=== PATIENT | male | born 1990 | race Caucasian/White ===

== ENCOUNTER 2021-08-28 19:52 | Emergency (ER) | payer OTHER, SELFPAY ==
[2021-08-28 20:16] VITALS: BP 127/86; PULSE 74; RESP 18; TEMP 36; O2SAT 100; BMI 30.4
--- NOTE | 2021-08-28 21:14 | ED_ITS ---
HPI - Back Pain/Injury General Chief Complaint: Back Pain/Injury Stated Complaint: Chronic Lower Back Pain, Lump Time Seen by Provider: 08/28/21 20:25 Source: patient Mode of arrival: Ambulatory History of Present Illness HPI Narrative: Patient is an otherwise healthy 31-year-old male. He does have history of chronic pain. His back pain in the past. Approximately 1 week ago started having lower back pain. Has taken Tylenol at home. He has had pain like this in the past but it has never lasted this long. He reports no radicular symptoms. No urinary symptoms. No change in bowel habits. No fevers. His thought that he had a lump in his lower back. He does have a history of scoliosis. Related Data Previous Rx's Medication Instructions Recorded cyclobenzaprine 10 mg tablet 10 mg PO TID PRN #12 tab 08/28/21 Allergies Allergy/AdvReac Type Severity Reaction Status Date / Time No Known Drug Allergies Allergy Verified 08/28/21 20:16 Review of Systems Gastrointestinal Gastrointestinal: Reports system reviewed and no additional complaints, except as documented Genitourinary Genitourinary: Reports system reviewed and no additional complaints, except as documented Musculoskeletal Musculoskeletal: Reports system reviewed and no additional complaints, except as documented Integumentary/Breasts Skin/Breast: Reports system reviewed and no additional complaints, except as documented Hematologic/Lymphatic On Anticoagulants: No Patient History Medical History Scoliosis Social History Smoking Status: Never smoker Smoking Status: Never smoker alcohol intake frequency: holidays/special occasions only Substance Use Type: marijuana Exam Initial Vital Signs Initial Vital Signs: Vital Signs Temperature 96.8 F L 08/28/21 20:16 Pulse Rate 74 08/28/21 20:16 Respiratory Rate 18 08/28/21 20:16 Blood Pressure 127/86 08/28/21 20:16 Pulse Oximetry 100 08/28/21 20:16 Resp Effort & Inspection: normal respiratory effort Cardio Rate: regular rate Back/Spine/Pelvis Other: Of the year in question with the patient has lump do not feel any specific nodules or masses. He does have fullness of the right paraspinal muscles in the thoracic region. These are not tender to palpation. He does have paraspinal tenderness in his thoracolumbar region. Skin General: no rashes or lesions noted Neuro General: patient alert, patient awake and moves all extremities Course Vital Signs Vital signs: Vital Signs - 8 hr 08/28/21 20:16 Temperature 96.8 F L Pulse Rate 74 Respiratory Rate 18 Blood Pressure 127/86 Pulse Oximetry 100 MDM - Back Pain/Injury MDM Narrative Medical decision making narrative: Patient does have a benign exam. There is no masses felt on his back. His skin is unremarkable. He has no radicular symptoms. His symptoms are clearly muscular in origin. No indication for radiologic studies. Will send home with muscle relaxers to see his improves his symptoms. He is given return precauti ons. He expressed understanding and agreement. Discharge Plan Departure Patient Disposition: Home Clinical Impression: Back pain Instructions: DI for Low Back Pain Activity Restrictions/Additional Instructions: I do recommend that you continue to take all of your medications as directed. It is important that you stay active. You can use light stretching and heat and ice. Keep all of your scheduled medical appointments. Return to the emergency department for any new or worsening symptoms. Prescriptions: New cyclobenzaprine 10 mg tablet 10 mg PO TID PRN (Reason: muscle spasm) Qty: 12 0RF Referrals: Jax Trinidad MD [Primary Care Provider] -
== END 2021-08-28 21:22 | disposition home or self-care (01) ==
PROVIDERS: Emergency Provider Emergency Medicine; PCP Internal Medicine
DX: M54.50 Low back pain, unspecified (principal)
CPT/HCPCS: 99281

== ENCOUNTER 2024-02-29 17:29 | Observation (INO) | payer OTHER, SELFPAY ==
[2024-02-29] VITALS (8 sets, daily range): BP systolic 113–147; BP diastolic 60–89; PULSE 122–140; RESP 18–22; TEMP 37.4–38.2; O2SAT 96–99; BMI 30.4; BMI 29.8
--- NOTE | 2024-02-29 17:40 | DI.RAD.S_ITS ---
PROCEDURE: XR CHEST 1V INDICATIONS: suspected sepsis TECHNIQUE: One view of the chest was acquired. COMPARISON: None. FINDINGS: Surgical changes and devices: None. Lungs and pleura: Lungs are clear. No pleural effusions or pneumothorax. Mediastinum: Mediastinal contours appear normal. Heart size is normal. Bones and chest wall: No suspicious bony lesions. Overlying soft tissues appear unremarkable. IMPRESSION: No acute cardiopulmonary abnormality is seen. Dictated by: Cesario Venegas M.D. on 02/29/2024 at 19:45 Approved by: Cesario Venegas M.D. on 02/29/2024 at 19:45
--- NOTE | 2024-02-29 17:47 | EKG_ITS ---
[facility] [address], [place] [address] Test Date: 2024-02-29 Pat Name: Alfredo Ross Department: [facility] Room: Gender: Male Agricultural Technician: SATHISH : 1990 Requested By: Order Number: [id number] Reading MD: Surjit Abad Measurements Intervals [place] Rate: 130 P: 51 NE: 126 QRS: 21 QRSD: 90 T: 63 QT: 296 QTc: 435 Interpretive Statements Sinus tachycardia Electronically Signed On 03-01-2024 18:09:07 PDT by Surjit Abad
[2024-02-29 17:53] LABS: Add Manual Diff / Slide Review NO; Basophils Absolute Auto 0 /uL (0-100); Basophils Percent Auto 0.2 % (0-2); Eosinophils Absolute Auto 0 /uL (0-450); Eosinophils Percent Auto 0.1 % (2-4); Hematocrit 41.6 % (41-53); Hemoglobin 14.2 g/dL (13.5-17.5); Lymphocytes Absolute Auto 900 /uL (1100-4500); Lymphocytes Percent Auto 4.7 % (25-40); Mean Corpuscular HGB Conc 34.1 % (30-36); Mean Corpuscular Hemoglobin 30.1 PG (26-34); Mean Corpuscular Volume 88.4 fL (80-100); Monocytes Absolute Auto 1700 /uL (0-900); Monocytes Percent Auto 8.9 % (3-14); Neutrophils Absolute Auto 16000 /uL (1500-7000); Neutrophils Percent Auto 86.1 % (50-75); Platelet Count 244 X10^3/uL (150-400); Red Cell Distribution Width 13.3 % (11.6-14.8); White Blood Cell Count 18.5 X10^3/uL (4.5-11.0)
[2024-02-29] MEDS: SODIUM CHLORIDE 0.9% 1,000 ML 1000 ML IV (18:00)
[2024-02-29 18:01] LABS: Prothrombin Time 11.8 SECONDS (9.4-12.5)
--- NOTE | 2024-02-29 18:02 | DI.CT.S_ITS ---
PROCEDURE: CT ABDOMEN PELVIS W CON INDICATIONS: RLQ pain eval for appy TECHNIQUE: After the administration of intravenous contrast, axial sections acquired from the lung bases to the pubic symphysis. Coronal and sagittal reformats were performed. For radiation dose reduction, the following was used: automated exposure control, adjustment of mA and/or kV according to patient size. COMPARISON: None. FINDINGS: Image quality: Diagnostic. Lower Chest: No significant findings. ABDOMEN: Liver: No solid mass. Hepatic steatosis. Gallbladder: No radiopaque gallstones or wall thickening. Biliary ducts: No biliary dilation. Pancreas: No ductal dilation. Spleen: Size is within normal limits. Adrenal Glands: No adrenal nodules. Kidneys and Ureters: No hydronephrosis. No solid mass. No complex renal cystic lesion which requires follow up. Stomach and Bowel: Mild diffuse wall thickening of the colon. The appendix is fluid-filled and dilated measuring up to 1.1 cm with wall thickening and surrounding inflammatory changes. Peritoneum: No abnormal intraperitoneal fluid. No free air. Ventral Wall: No significant ventral hernia. Abdominal Nodes: No retroperitoneal or mesenteric adenopathy by size criteria. Vessels: Aorta and inferior vena cava are normal in size. PELVIS: Pelvic Organs: Unremarkable. Bladder: No bladder wall thickening, accounting for underdistention. Pelvic Nodes: No enlarged lymph nodes. Miscellaneous: No inguinal hernias are seen. Bones: No aggressive osseous abnormality. IMPRESSION: 1. Findings consistent with acute uncomplicated appendicitis. No organized fluid collections or extraluminal gas. 2. Mild diffuse wall thickening of the colon, may be secondary to underdistention versus colitis, recommend clinical correlation. 3. Hepatic steatosis. Dictated by: Cesario Venegas M.D. on 02/29/2024 at 18:53 Approved by: Cesario Venegas M.D. on 02/29/2024 at 18:57
[2024-02-29 18:04] LABS: PTT Partial Thromboplastin Tim 28 SECONDS (25.1-36.5)
[2024-02-29 18:05] LABS: Alanine Aminotransferase 83 IU/L (<50); Albumin 4.7 g/dL (3.5-5.0); Albumin Globulin Ratio 1.4 (1.0-2.8); Alkaline Phosphatase 51 U/L (38-126); Aspartate Aminotransferase 33 IU/L (17-59); BUN Creatinine Ratio 18.2 (6-22); Bilirubin Total 0.8 mg/dL (0.2-1.3); Blood Urea Nitrogen 14 mg/dL (9-20); Calcium 9.5 mg/dL (8.4-10.2); Carbon Dioxide 24 mmol/L (22-32); Chloride 100 mmol/L (98-107); Estimated Glomerular Filt Rate > 60 mL/min (>60); Globulin 3.4 g/dL (1.7-4.1); Glucose 151 mg/dL (70-100); HEMOLYSIS < 15 (0-50); Lactate (Lactic Acid) 2.1 mmol/L (0.7-2.1); Lipase 50 U/L (23-300); Potassium 3.6 mmol/L (3.4-5.1); Sodium 137 mmol/L (137-145); Total Protein 8.1 g/dL (6.3-8.2)
[2024-02-29 18:21] LABS: Procalcitonin 0.087 ng/mL (<0.5)
--- NOTE | 2024-02-29 19:06 | ED.GENADULT ---
HPI - General Adult General Chief complaint: Abdominal Pain Stated complaint: lower right abd pain Time Seen by Provider: 02/29/24 18:02 Source: patient Mode of arrival: Ambulatory History of Present Illness HPI narrative: Patient is a 33-year-old male. Has a history of psoriatic arthritis. Also has a history atrial fibrillation status post ablation. Not on anticoagulation. Woke up this morning with right lower quadrant pain that has progressively worsened as the day goes on. Has had nausea but no vomiting. Has also had diarrhea. No urinary symptoms. No fevers. No prior abdominal surgeries. Has not taken anything for symptoms prior to arrival. Related Data Home Medications Medication Instructions Recorded Confirmed diclofenac sodium 75 mg 75 mg PO BID 02/29/24 02/29/24 tablet,delayed release gabapentin 600 mg tablet 600 mg PO ONCE PM restless legs 02/29/24 02/29/24 loratadine 10 mg tablet 10 mg PO DAILY 02/29/24 02/29/24 metoprolol succinate 25 mg 25 mg PO BID 02/29/24 02/29/24 tablet,extended release 24 hr omeprazole 20 mg capsule,delayed 20 mg PO DAILY 02/29/24 02/29/24 release venlafaxine 150 mg 150 mg PO DAILY depressive disorder 02/29/24 02/29/24 capsule,extended release 24 hr Allergies Allergy/AdvReac Type Severity Reaction Status Date / Time No Known Drug Allergies Allergy Verified 08/28/21 20:16 Review of Systems Review of Systems Narrative: See HPI Patient History Medical History Scoliosis Social History household members: spouse Smoking Status: Never smoker Smoking Status: Never smoker alcohol intake frequency: holidays/special occasions only Substance Use Type: marijuana Exam Initial Vital Signs Initial Vital Signs: Vital Signs Temperature 99.4 F 02/29/24 17:37 Pulse Rate 130 H 02/29/24 17:37 Respiratory Rate 18 02/29/24 17:37 Blood Pressure 134/82 02/29/24 17:37 Pulse Oximetry 99 02/29/24 17:37 Oxygen Delivery Method Room Air 02/29/24 17:37 Const General: cooperative HENMT Head: normal to inspection and normocephalic Resp Effort & Inspection: normal respiratory effort Auscultation: clear to auscultation bilaterally Cardio Rate: regular rate Rhythm: regular rhythm GI Inspection: normal to inspection and non-distended Palpation: tender (Right lower quadrant) Neuro General: patient alert and patient awake Extrem General: normal to inspection Course Orders Ordered: ED Orders 02/29/24 17:40 XR chest 1V Stat EKG-12 Lead Stat RT Consult Eval and Treat NOW 02/29/24 17:45 Complete Blood Count AUTO DIFF Stat Comprehensive Metabolic Panel Stat Lactate (Lactic Acid) Stat Lipase Stat PTT Partial Thromboplastin Samir Stat Procalcitonin Stat Prothrombin Time INR Stat 02/29/24 18:02 CT abdomen pelvis w con Stat 02/29/24 18:09 Blood Culture Stat 02/29/24 19:05 Consult to General Surgery Stat Acetaminophen (Acetaminophen 325 Mg Tablet) 650 mg PO Q6H [facility] Last Admin: 02/29/24 22:23 Dose: 650 mg Documented By: Celecoxib (Celecoxib 100 Mg Capsule) 200 mg PO BID [facility] Last Admin: 02/29/24 22:23 Dose: 200 mg Documented By: Gabapentin (Gabapentin 600 Mg Tablet) 600 mg PO BEDTIME [facility] Last Admin: 02/29/24 22:23 Dose: 600 mg Documented By: Hydromorphone HCl (Hydromorphone 2 Mg Tablet) 2 mg PO Q4HR PRN PRN Reason: Pain, Moderate (4-6) Last Admin: 03/01/24 00:12 Dose: 2 mg Documented By: Admin: 02/29/24 19:56 Dose: 2 mg Documented By: TAMERA Piperacillin Sod/Tazobactam (Sod 4.5 gm/ Sodium Chloride) 100 mls @ 25 mls/hr IV Q8H [facility] Last Admin: 03/01/24 00:02 Dose: 25 mls/hr Documented By: Metoprolol Succinate (Metoprolol Er 25 Mg Tablet) 25 mg PO BID [facility] Last Admin: 02/29/24 22:22 Dose: 25 mg Documented By: Naloxone HCl (Naloxone 0.4 Mg/Ml Vial) 0.2 mg IV Q2MIN PRN PRN Reason: Opiate Reversal Ondansetron HCl (Ondansetron 4 Mg/2 Ml Inj) 4 mg IV NOW PRN PRN Reason: Nausea And Vomiting Ondansetron HCl (Ondansetron 4 Mg Odt) 4 mg SL NOW PRN PRN Reason: Nausea And Vomiting Oxycodone HCl (Oxycodone Ir 5 Mg Tablet) 5 mg PO Q3H PRN PRN Reason: Pain, Moderate (4-6) Oxycodone HCl (Oxycodone Ir 10 Mg Tablet) 10 mg PO Q3H PRN PRN Reason: Pain, Severe (7-10) Discontinued Medications Acetaminophen (Acetaminophen 325 Mg Tablet) 650 mg PO Q6H [facility] Last Admin: 02/29/24 22:27 Dose: Not Given Documented By: Sodium Chloride (Normal Saline 0.9%) 1,000 mls @ 1,000 mls/hr IV BOLUS ONE Stop: 02/29/24 18:39 Last Infusion: 02/29/24 19:51 Dose: Infused Documented By: Admin: 02/29/24 18:00 Dose: 1,000 mls/hr Documented By: LANNY Piperacillin Sod/Tazobactam (Sod 4.5 gm/ Sodium Chloride) 100 mls @ 200 mls/hr IV NOW ONE Stop: 02/29/24 19:05 Last Infusion: 02/29/24 19:58 Dose: Infused Documented By: Admin: 02/29/24 19:20 Dose: 200 mls/hr Documented By: TAMERA Piperacillin Sod/Tazobactam (Sod 4.5 gm/ Sodium Chloride) 100 mls @ 200 mls/hr IV TID [facility] Morphine Sulfate (Morphine 4 Mg/Ml Inj) 4 mg IV NOW ONE Stop: 02/29/24 19:05 Last Admin: 02/29/24 19:20 Dose: 4 mg Documented By: TAMERA Scopolamine (Scopolamine 1 Patch) 1 patch TOP NOW ONE Stop: 02/29/24 19:46 Last Admin: 02/29/24 22:24 Dose: 1 patch Documented By: Vital Signs Vital signs: Vital Signs - 8 hr 02/29/24 17:37 02/29/24 18:53 Temperature 99.4 F Pulse Rate 130 H 140 H Respiratory Rate 18 22 Blood Pressure 134/82 147/86 H Pulse Oximetry 99 99 Oxygen Delivery Method Room Air Room Air Medical Decision Making Lab Data Lab results reviewed: Yes I reviewed the patient's lab results. 02/29/24 17:45 02/29/24 17:45 Labs: Lab Results 02/29/24 02/29/24 Range/Units 17:45 19:37 WBC 18.5 H (4.5-11.0) X10^3/uL RBC 4.70 (4.5-5.9) X10^6/uL Hgb 14.2 (13.5-17.5) g/dL Hct 41.6 (41-53) % MCV 88.4 (80-100) fL MCH 30.1 (26-34) PG MCHC 34.1 (30-36) % RDW 13.3 (11.6-14.8) % Plt Count 244 (150-400) X10^3/uL Neut % (Auto) 86.1 H (50-75) % Lymph % (Auto) 4.7 L (25-40) % [place] % (Auto) 8.9 (3-14) % Eos % (Auto) 0.1 L (2-4) % Baso % (Auto) 0.2 (0-2) % Neut # (Auto) 10633 H (5319-8108) /uL Lymph # (Auto) 900 L (3919-6363) /uL Daniels # (Auto) 1700 H (0-900) /uL Eos # (Auto) 0 (0-450) /uL Baso # (Auto) 0 (0-100) /uL PT 11.8 (9.4-12.5) SECONDS INR 1.0 (0.9-1.3) APTT 28 (25.1-36.5) SECONDS Sodium 137 (137-145) mmol/L Potassium 3.6 (3.4-5.1) mmol/L Chloride 100 (98-107) mmol/L Carbon Dioxide 24 (22-32) mmol/L BUN 14 (9-20) mg/dL Creatinine 0.77 (0.66-1.25) mg/dL Estimated GFR > 60 (>60) mL/min BUN/Creatinine Ratio 18.2 (6-22) Glucose 151 H (70-100) mg/dL Lactate 2.1 1.7 (0.7-2.1) mmol/L Calcium 9.5 (8.4-10.2) mg/dL Total Bilirubin 0.8 (0.2-1.3) mg/dL AST 33 (17-59) IU/L ALT 83 H (<50) IU/L Alkaline Phosphatase 51 (38-126) U/L Total Protein 8.1 (6.3-8.2) g/dL Albumin 4.7 (3.5-5.0) g/dL Globulin 3.4 (1.7-4.1) g/dL Albumin/Globulin Ratio 1.4 (1.0-2.8) Lipase 50 (23-300) U/L Procalcitonin 0.087 (<0.5) ng/mL Urine Dip Bedside Urine Glucose Negative Bedside Urine Bilirubin - Negative Bedside Urine Ketone ++ 40 Urine Specific [place] 1.010 Bedside Urine Occult Blood - Negative Bedside Urine pH 8.5 Bedside Urine Protein - Negative Bedside Urine Urobilinogen - Negative Bedside Urine Nitrite - Negative Bedside Urine Leukocytes - Negative Esterase Point of care testing: Urine Dip Bedside Urine Glucose Negative Bedside Urine Bilirubin - Negative Bedside Urine Ketone ++ 40 Urine Specific [place] 1.010 Bedside Urine Occult Blood - Negative Bedside Urine pH 8.5 Bedside Urine Protein - Negative Bedside Urine Urobilinogen - Negative Bedside Urine Nitrite - Negative Bedside Urine Leukocytes - Negative Esterase Imaging Data Chest x-ray: Radiologist's Impression: PROCEDURE: XR CHEST 1V INDICATIONS: suspected sepsis TECHNIQUE: One view of the chest was acquired. COMPARISON: None. FINDINGS: Surgical changes and devices: None. Lungs and pleura: Lungs are clear. No pleural effusions or pneumothorax. Mediastinum: Mediastinal contours appear normal. Heart size is normal. Bones and chest wall: No suspicious bony lesions. Overlying soft tissues appear unremarkable. IMPRESSION: No acute cardiopulmonary abnormality is seen. CT scan - abdomen/pelvis: Radiologist's Impression: PROCEDURE: CT ABDOMEN PELVIS W CON INDICATIONS: RLQ pain eval for appy TECHNIQUE: After the administration of intravenous contrast, axial sections acquired from the lung bases to the pubic symphysis. Coronal and sagittal reformats were performed. For radiation dose reduction, the following was used: automated exposure control, adjustment of mA and/or kV according to patient size. COMPARISON: None. FINDINGS: Image quality: Diagnostic. Lower Chest: No significant findings. ABDOMEN: Liver: No solid mass. Hepatic steatosis. Gallbladder: No radiopaque gallstones or wall thickening. Biliary ducts: No biliary dilation. Pancreas: No ductal dilation. Spleen: Size is within normal limits. Adrenal Glands: No adrenal nodules. Kidneys and Ureters: No hydronephrosis. No solid mass. No complex renal cystic lesion which requires follow up. Stomach and Bowel: Mild diffuse wall thickening of the colon. The appendix is fluid-filled and dilated measuring up to 1.1 cm with wall thickening and surrounding inflammatory changes. Peritoneum: No abnormal intraperitoneal fluid. No free air. Ventral Wall: No significant ventral hernia. Abdominal Nodes: No retroperitoneal or mesenteric adenopathy by size criteria. Vessels: Aorta and inferior vena cava are normal in size. PELVIS: Pelvic Organs: Unremarkable. Bladder: No bladder wall thickening, accounting for underdistention. Pelvic Nodes: No enlarged lymph nodes. Miscellaneous: No inguinal hernias are seen. Bones: No aggressive osseous abnormality. IMPRESSION: 1. Findings consistent with acute uncomplicated appendicitis. No organized fluid collections or extraluminal gas. 2. Mild diffuse wall thickening of the colon, may be secondary to underdistention versus colitis, recommend clinical correlation. 3. Hepatic steatosis. ECG Data Attestation: I personally reviewed and interpreted this ECG as follows: Interpretation: Sinus tachycardia Ventricular rate of 130 Normal axis Normal QRS Normal QTC No ST T wave changes MDM Narrative Medical decision making narrative: History and physical and CT scan concerning for acute appendicitis. Discussed the case with Dr. Chau on-call for General surgery who will admit. Antibiotics administered. Discussed the diagnosis with the patient. He expressed understanding and agreement with plan. Discharge Plan Departure Patient Disposition: Admitted as Observation Clinical Impression: Acute appendicitis Admit Date/Time: 02/29/24 19:39 Admit Provider: Teri Chau
[2024-02-29] MEDS: PIPERACILLIN/TAZO 4.5 GM in SODIUM CHLORIDE 0.9% 100 ML IV (19:20)
[2024-02-29] MEDS: MORPHINE 4 MG/ML INJ IV (19:20)
[2024-02-29 19:23] LABS: Reflexed Lactate in 2 Hours Y
[2024-02-29] MEDS: HYDROMORPHONE 2 MG TABLET PO (19:56)
--- NOTE | 2024-02-29 20:07 | PM.CALLCOV.1 ---
Call Coverage Note Note Date of Patient Contact: 02/29/24 Time of Patient Contact: 20:07 Narrative of Care Provided: Acute appendicitis w fecal lith. IV antibiotics now with OR tomorrow. Lap appy with Dr. Mcduffie
[2024-02-29 20:09] LABS: Lactate 2HR (Lactic Acid Rflx) 1.7 mmol/L (0.7-2.1)
[2024-02-29] MEDS: METOPROLOL ER 25 MG TABLET PO (22:22)
[2024-02-29] MEDS: ACETAMINOPHEN 325 MG TABLET 650 MG PO (22:23)
[2024-02-29] MEDS: GABAPENTIN 600 MG TABLET PO (22:23)
[2024-02-29] MEDS: CELECOXIB 100 MG CAPSULE 200 MG PO (22:23)
[2024-02-29] MEDS: SCOPOLAMINE 1 PATCH TOP (22:24)
[2024-03-01] VITALS (14 sets, daily range): BP systolic 100–126; BP diastolic 63–79; PULSE 89–120; RESP 16–24; TEMP 36.2–37.7; O2SAT 90–99; BMI 29.8
--- NOTE | 2024-03-01 | PATH_ITS ---
[facility] Accession Number: [id number] No. of containers..01 Tissue . 01 Material submitted: . appendix - APPENDIX . 01 Diagnosis: APPENDIX: Acute suppurative appendicitis. [facility] 03/03/2024 1706 Local . 01 Electronically signed: . Humberto Dejesus MD, Pathologist NPI- [id number] . 01 Gross description: . Received in formalin with two patient identifiers and appendix, is a hernandez and brown mottled appendix (7.8 cm in length and 1.1 cm diameter) with a mesoappendix up to 1.7 cm. The serosa is smooth with flaking hernandez exudate. The margin is inked blue. The lumen is patent and dilated containing semi-solid fecal matter. The min are denis-hernandez and 0.1 to 0.4 cm thick. No perforations or lesions grossly seen. Registered Nurse Obstetrics sections include the margin, one-half of the bisected distal tip, and a cross-section submitted in cassette A1. ([id number]) /[facility] 03/03/20241705 Local . 01 Pathologist provided ICD-10: K35.80 . 01 CPT . 919364 Specimen Comment: A courtesy copy of this report has been sent to [phone] Performed at: [address] [address], [place], [place] [id number] MD Humberto Dejesus MD Phone: [phone]
[2024-03-01] MEDS: PIPERACILLIN/TAZO 4.5 GM in SODIUM CHLORIDE 0.9% 100 ML IV (00:02)
[2024-03-01] MEDS: HYDROMORPHONE 2 MG TABLET PO (00:12)
[2024-03-01] MEDS: ACETAMINOPHEN 325 MG TABLET 650 MG PO (04:03)
[2024-03-01 06:22] LABS: Add Manual Diff / Slide Review NO; Basophils Absolute Auto 100 /uL (0-100); Basophils Percent Auto 0.3 % (0-2); Eosinophils Absolute Auto 0 /uL (0-450); Eosinophils Percent Auto 0.1 % (2-4); Hematocrit 36.8 % (41-53); Hemoglobin 12.8 g/dL (13.5-17.5); Lymphocytes Absolute Auto 1600 /uL (1100-4500); Lymphocytes Percent Auto 9.9 % (25-40); Mean Corpuscular HGB Conc 34.6 % (30-36); Mean Corpuscular Hemoglobin 30.2 PG (26-34); Mean Corpuscular Volume 87.2 fL (80-100); Monocytes Absolute Auto 1800 /uL (0-900); Monocytes Percent Auto 11.2 % (3-14); Neutrophils Absolute Auto 12800 /uL (1500-7000); Neutrophils Percent Auto 78.5 % (50-75); Platelet Count 210 X10^3/uL (150-400); Red Blood Cell Count 4.23 X10^6/uL (4.5-5.9); Red Cell Distribution Width 13.5 % (11.6-14.8); White Blood Cell Count 16.4 X10^3/uL (4.5-11.0)
--- NOTE | 2024-03-01 08:46 | P.HP_ITS ---
History of Present Illness History of Present Illness Date Patient Seen: 03/01/24 Time Patient Seen: 08:46 Chief complaint: lower right abd pain Narrative: Alfredo is a 33-year-old man who presented to the emergency department yesterday with one day of right lower quadrant abdominal pain. A CT scan showed acute uncomplicated appendicitis. His only other medical condition is atrial fibrillation and supraventricular tachycardia for which he takes 25 mg of metoprolol twice a day. His heart rate is well controlled with metoprolol. He did take his metoprolol last night but he has not had his morning dose today yet. No prior abdominal surgery. He has received Zosyn. [facility] Medical History Scoliosis Social History household members: spouse Smoking Status: Never smoker Meds Home Medications and Allergies Home Medications Medication Instructions Recorded Confirmed Type diclofenac sodium 75 mg 75 mg PO BID 02/29/24 02/29/24 History tablet,delayed release gabapentin 600 mg tablet 600 mg PO ONCE PM restless legs 02/29/24 02/29/24 History loratadine 10 mg tablet 10 mg PO DAILY 02/29/24 02/29/24 History metoprolol succinate 25 mg 25 mg PO BID 02/29/24 02/29/24 History tablet,extended release 24 hr omeprazole 20 mg capsule,delayed 20 mg PO DAILY 02/29/24 02/29/24 History release venlafaxine 150 mg 150 mg PO DAILY depressive disorder 02/29/24 02/29/24 History capsule,extended release 24 hr Allergies Allergy/AdvReac Type Severity Reaction Status Date / Time No Known Drug Allergies Allergy Verified 08/28/21 20:16 Exam Vital Signs (past 8 hours): - 03/01/24 04:00 Temperature 98.9 F Pulse Rate 98 H Respiratory Rate 16 Blood Pressure 110/65 Pulse Oximetry 95 Oxygen Flow Rate 0 Oxygen Delivery Method Room Air Oxygen Flow Rate 0 Narrative Exam Narrative: Right lower quadrant is tender to palpation Const General: healthy appearing Objective Labs 03/01/24 06:06 02/29/24 17:45 Labs: Laboratory Results - last 24 hr 02/29/24 02/29/24 03/01/24 17:45 19:37 06:06 WBC 18.5 H 16.4 H RBC 4.70 4.23 L Hgb 14.2 12.8 L Hct 41.6 36.8 L MCV 88.4 87.2 MCH 30.1 30.2 MCHC 34.1 34.6 RDW 13.3 13.5 Plt Count 244 210 Neut % (Auto) 86.1 H 78.5 H Lymph % (Auto) 4.7 L 9.9 L [place] % (Auto) 8.9 11.2 Eos % (Auto) 0.1 L 0.1 L Baso % (Auto) 0.2 0.3 Neut # (Auto) 79499 H 27118 H Lymph # (Auto) 900 L 1600 [place] # (Auto) 1700 H 1800 H Eos # (Auto) 0 0 Baso # (Auto) 0 100 PT 11.8 INR 1.0 APTT 28 Sodium 137 Potassium 3.6 Chloride 100 Carbon Dioxide 24 BUN 14 Creatinine 0.77 Estimated GFR > 60 BUN/Creatinine Ratio 18.2 Glucose 151 H Lactate 2.1 1.7 Calcium 9.5 Total Bilirubin 0.8 AST 33 ALT 83 H Alkaline Phosphatase 51 Total Protein 8.1 Albumin 4.7 Globulin 3.4 Albumin/Globulin Ratio 1.4 Lipase 50 Procalcitonin 0.087 Assessment & Plan Assessment and plan (1) Acute appendicitis: Qualifiers: Acute appendicitis type: with localized peritonitis Appendicitis gangrene presence: without gangrene Appendicitis perforation presence: without perforation Appendicitis abscess presence: without abscess Qualified Code(s): K35.30 - Acute appendicitis with localized peritonitis, without perforation or gangrene Status: Acute Plan We discussed the diagnosis of acute appendicitis. We discussed the treatment options including laparoscopic appendectomy or antibiotic therapy. He would like to proceed with surgery. Time-Based Coding :: [TOTAL MINUTES] spent with patient and on the chart (including review of chart, obtaining history, exam, reviewing outside data, placing orders, documenting exam and treatment plan, and counseling patient) on [DATE].
[2024-03-01] MEDS: METOPROLOL ER 25 MG TABLET PO (09:46)
[2024-03-01] MEDS: PIPERACILLIN/TAZO 3.375 GM in SODIUM CHLORIDE 0.9% 100 ML IV (09:49)
--- NOTE | 2024-03-01 11:23 | PC.NURSE ---
Pt to OR for surgery via bed with chart. Transported by Ros MACHADO
[2024-03-01 11:58] LABS: COVID19 -Nasal RAPID Negative (Negative)
[2024-03-01] MEDS: LACTATED RINGERS 1,000 ML 42 ML IV (13:00)
--- NOTE | 2024-03-01 13:27 | CM.DANOTE ---
Initial DCP Assessment Visit Note Reviewed EMR and team rounds for status updates. Pt was in surgery at the time of this visit. He resides independently with his /family in their own home in [place]. His will plan to transport him home once he's stable for d/c, likely on 03/02/24 (). Payor: An Wilson Attending: Dr. Chau Pt is a 33 year-old M who presented to the ED yesterday am with a R-lower quadrant pain that worsened throughout the day. He also c/o diarrhea, however did not have N/V. CT scan of abd/pelvis showed acute appendicitis. Surgery was consulted, and the plan was made to start pt on IV ABO's/pain meds, and to admit to [facility] for appendectomy surgery (today). DCP will continue to follow for any evolving d/c assistance needs, however none are anticipated at this time. Discharge Planning/Care Management CM Discharge Assessment Start: 03/01/24 13:18 Freq: Status: Active Protocol: Document 03/01/24 13:18 DPL (Rec: 03/01/24 13:25 DPL [id number]) Discharge Planning Assessment Assigned Process Design Engineer KOBI Eaton Advance Directives? No History Provided By Medical Record Has Patient been admitted in last 30 No days? Prior Living Arrangements House Household Members spouse Type of transporation used prior to Drives own vehicle admit Independent with ADL's Yes Is patient alert and oriented? Yes Caregiver for Another Yes: family Comment N/A Comment N/A Barriers to Discharge No Discharge Plan Home Referrals Initiated None needed Whiteboard Updated in Patient Room with Yes name and ext. # of Process Design Engineer Review Status In Process Please Provide Date Initial DC 03/01/24 Assessment Was Performed
--- NOTE | 2024-03-01 13:45 | SUR.OPER ---
Supine on padded OR bed, head on pillow, left arm padded and tucked at side, right arm on padded arm board at < 90 degrees, legs uncrossed, safety belt at thigh, tape over blanket over lower legs .
[2024-03-01] MEDS: BUPIVACAINE 0.5% (PF) 30 ML, EPINEPHrine 0.15 MG INJ (13:56)
--- NOTE | 2024-03-01 14:05 | PM.OP.1 ---
Operative Date/Time/Diagnoses Date of procedure: 03/01/24 Time of procedure: 14:05 Pre-op diagnosis: Acute appendicitis Post-op diagnosis: same Procedure & Clinicians Procedure: Laparoscopic appendectomy Same procedure as scheduled: Yes Surgeon: Sergei Mcduffie Papeterie Table Assembler: Rodriguez Dickson Operative Notes Procedure in detail: The patient was on IV antibiotics. The patient was brought to the operating room, placed on the table in the supine position and general endotracheal anesthesia was induced. A time-out was performed. The abdomen was prepped and draped in the usual fashion. After injection of local anesthetic a 1 cm infraumbilical incision was created with a 15 blade scalpel. The umbilical stalk was grasped with a Genna clamp to elevate the abdominal wall. The infraumbilical midline fascia was cleared over 1 cm and the fascia was scored with cautery. The peritoneum was pierced with a Peon clamp. The Val port was placed and the abdomen was insufflated to 15 mmHg. The camera was inserted and there was no evidence of any injury from the entry. Next, 5 mm ports were placed in the suprapubic and left lower quadrant positions under direct vision. The patient was placed in Trendelenburg with the right-side elevated. The terminal ileum was swept away from the cecum and the appendix was visualized. The appendix was inflamed and distended but not perforated and there was no evidence of gangrene. There appeared to be a fecalith at the base of the appendix. The mesoappendix was divided with the Power-seal. Two PDS Endoloops were placed at the base and a 3rd endoloop was placed about a centimeter distally and the appendix was divided sharply. The specimen was placed in a Endo-Catch bag. A small amount of fluid with suctioned from the base of the appendix and pelvis. The table was flattened and the terminal ileum and omentum were allowed to slide in over the appendiceal stump. Finally, the 5 mm ports were removed under direct vision. The pneumoperitoneum was released and the Val port was removed followed by the Endo-Catch bag. Additional local was injected into the fascia and the infraumbilical incision was closed with 2 interrupted 2-0 Vicryl sutures. The skin incisions were closed with 4 Monocryl. Steri-Strips were applied followed by Band-Aids. EBL: 5 mL Specimen: Appendix Rodriguez ROONEY provided assistance with exposure, retraction and closure of incisions. Post-operative Condition: stable Disposition: PACU
[2024-03-01] MEDS: OXYCODONE IR 5 MG TABLET PO (14:40)
--- NOTE | 2024-03-01 17:43 | PC.NURSE ---
Pt is dressed and ready for discharge home with Spouse. IV has been removed. Went over d/c instructions with Pt and Spouse-discussed d/c meds, time of last dose, reviewed stroke education, no driving while on narcotics, showering, dressings, drink plenty of fluids to prevent constipation or dehydration, and follow up with Dr. Griffith office-they will call you to schedule. Pt denied further questions and was taken out via w/c by RN to POV with Spouse and all belongings.
== END 2024-03-01 17:53 | disposition home or self-care (01) ==
LOC: ED 19:06 → AC 03-01 06:39
PROVIDERS: Student in an Organized Health Care Education/Training Program; Surgery; Admitting Provider Surgery; Emergency Provider Emergency Medicine; PCP Internal Medicine; Referring Provider Emergency Medicine; Visit Provider Surgery
PROC: 0DTJ4ZZ Resection of Appendix, Percutaneous Endoscopic Approach (ICD-10-PCS; CPT 44970; principal; 2024-03-01 12:15)
DX: K35.80 Unspecified acute appendicitis (principal); Z11.52 Encounter for screening for COVID-19
CPT/HCPCS: 44970; 36415; 71045; 74177; 80053; 81003; 83605; 83690; 84145; 85025; 85610; 85730; 87040; 87635; 93005; 96361; 96365; 96366; 96375; 99284; G0378; J0171; J0330; J1100; J1885; J2250; J2270; J2405; J2543; J2704; J3010; Q9967